=== PATIENT | male | born 1975 | race Caucasian/White ===

== ENCOUNTER 2017-10-06 13:38 | Inpatient (IN) ==
[2017-10-06] MEDS ORDERED: ZOSYN VIAL 3.375 GRAMS 3.375 G in NS 100 ML IV + SPIKE MINIBAG* 100 ML IV SCH (14:04)
[2017-10-06 17:06] VITALS: BMI 18.5
[2017-10-06 17:23] LABS: BASOPHILS # (AUTO) 0.1 X10^3/uL (0.0-0.1); BASOPHILS % (AUTO) 0.9 % (0.2-1.0); EOSINOPHILS % (AUTO) 0.1 % (0.9-2.9); HEMATOCRIT 42.2 % (42.0-54.0); HEMOGLOBIN 14.3 g/dL (13.5-18.0); LYMPHOCYTES # (AUTO) 1.1 X10^3/uL (1.3-2.9); LYMPHOCYTES % (AUTO) 9.5 % (21.0-51.0); MEAN CORPUSCULAR HEMOGLOBIN 30.4 pg (27.0-34.0); MEAN CORPUSCULAR HGB CONC 33.9 g/dL (33.0-35.0); MEAN CORPUSCULAR VOLUME 89.5 fL (80.0-100.0); MEAN PLATELET VOLUME 10.7 fL (7.4-11.0); MONOCYTES # (AUTO) 0.9 x10^3/uL (0.3-0.8); MONOCYTES % (AUTO) 7.8 % (0.0-13.0); NEUTROPHILS # (AUTO) 9.3 x10^3/uL (2.2-4.8); NEUTROPHILS % (AUTO) 81.7 % (42.0-75.0); PLATELET COUNT 207 X10^3/uL (150.0-450.0); RED BLOOD COUNT 4.72 X10^6/uL (4.7-6.0); RED CELL DISTRIBUTION WIDTH 14.6 % (11.6-16.5); WHITE BLOOD COUNT 11.4 X10^3/uL (3.6-10.0)
--- NOTE | 2017-10-06 17:38 | RAD ---
HISTORY: Infected G-tube. Study: Abdomen, two views Comparison: None. Findings: Evaluation of the abdomen demonstrates a nonspecific bowel gas pattern. Following administration of c ontrast within the PEG tube, contrast identified within the gastric fundus. There is a small amount c ontrast identified within the antrum and several loops of small bowel. No contrast extravasation is a ppreciated. No pathological soft tissue mass or calcification can be observed. The bony structures a re grossly intact. A PROCESS COORDINATOR shunt catheter is noted in the right bhanu abdomen. IMPRESSION: 1. No acute abdominal or pelvic abnormality. 2. Contrast identified within the stomach and small bowel following administration via PEG tube. No contrast extravasation is appreciated. Reported By:
[2017-10-06 17:43] LABS: ALANINE AMINOTRANSFERASE 14 Units/L (12-78); ALKALINE PHOSPHATASE 93 Units/L (46-116); ASPARTATE AMINO TRANSFERASE 11 Units/L (15-37); BLOOD UREA NITROGEN 10 mg/dL (7-18); CALCIUM 8.6 mg/dL (8.5-10.1); CARBON DIOXIDE 26.4 mmol/L (21-32); CHLORIDE 104 mmol/L (98-107); COR CA(FOR HYPOALB) 9.4 mg/dL (8.5-10.1); CREATININE 0.74 mg/dL (0.70-1.30); SODIUM 141 mmol/L (136-145); TOTAL PROTEIN 6.8 g/dL (6.4-8.2); eGFR NON BLACK RACES > 60 (>60)
--- NOTE | 2017-10-06 17:55 | DR.H&P ---
H&P - History & Physical for Day of: H&P Date: 10/06/17 - Chief Complaint Chief Complaint: "INFECTED PEG TUBE" - History of Present Illness History of Present Illness: 42WM DIRECT ADMIT FROM DR MENENDEZ OFFICE WITH CO SEVERE REDNESS SURROUNDING PEGTUBE, WITH YELLOW DRAINAGE, STOMA IRRITATED. MOTHER REPORTS POOR APPETITE AND GRIMACING FROM PATIENT "LIKE HES IN PAIN". WOUND CULTURE COLLECTED IN THE OFFICE, RESULTS STILL PENDING. PT MOTHER PERFORMING DRESSING CHANGES QID, WITH APPLICATING BACTROBAN OINTMENT. PT HAS PMH OF CP, MR, GERD, LINN. PT ADMITTED FOR IV ATBX, WOUND AND BLOOD CULTURES, WOUND CARE AND RESUME HOME MEDICATIONS - Past Medical History Past Medical History: Anxiety, Arthritis, GERD Additional Medical History: CP, LINN, G TUBE - Past Surgical History Surgical History: Cholecystectomy - Social History Does patient currently use any type of tobacco product: No Have you used tobacco products in the last 12 months: No Type of Tobacco Use: None Does any household member use tobacco: No Alcohol Use: None Drug Use: None - Medications Home Medications: codeine Adverse Reaction (Verified 10/06/17 17:27) Penicillins Adverse Reaction (Verified 10/06/17 17:27) CONTINUE taking the following medications clonazepam 2 mg PO HS 10/06/17 [History] divalproex 125 mg PO QID 10/06/17 [History] ketoconazole 1 applic TOPICAL 2XW 10/06/17 [History] pantoprazole [Protonix] 40 mg PO DAILY 10/06/17 [History] - Review of Systems Constitutional: Malaise Eyes: No Symptoms Reported ENT: No Symptoms Reported Respiratory: No Symptoms Reported Cardiovascular: No Symptoms Reported. denies: Edema Gastrointestinal: Other (POOR APPETITE) Genitourinary: Incontinence Musculoskeletal: No Symptoms Reported Skin: Rash (LOCALIZED AROUND G TUBE) Neurological: Other (LIMITED COMMUNICATION DUE TO MR, CP) - Physical Exam Vital Signs: Temperature 98.9 F Pulse Rate [Left Brachial] 96 Respiratory Rate 20 Blood Pressure [Left Arm] 101/63 O2 Sat by Pulse Oximetry 97 Oriented: Person Eyes: Normal Ear: Normal Nose: Normal Throat: Dry Respiratory: RLL Diminished, LLL Diminished Cardiovascular: Normal : Normal Auscultation: Bowel Sounds: Normal Palpation: Normal Tenderness: Normal Skin: Decreased Turgur, Rash, Red (LOCALIZED REDNESS SURROUND PEG TUBE WITH THICK YELLOW DRAINAGE FROM STOMA), Tender Musculoskeletal: Deformity, Motor Deficit Psychiatric: Anxiety Affect: Anxious Speech Pattern: Aphasic (LIMITED VERBAL RESPONSES, CHRONIC DUE TO CP) - Assessment/Plan (1) Cellulitis Status: Acute Plan: ADMIT, WOUND AND BLOOD CULTURES. CBC CMP, ABD WITH GASTROGRAFIN XRAY. RESUME PEG TUBE FEEDINGS NORMAL ABD XRAY TO VERIFY PEG TUBE PLACMENT. WOUND CARE, IV ATBX. RESUME HOME MEDS (2) Leaking percutaneous endoscopic gastrostomy (PEG) tube Status: Acute (3) Irritation around percutaneous endoscopic gastrostomy (PEG) tube site Status: Acute (4) Cerebral palsy Status: Acute (5) GERD (gastroesophageal reflux disease) Status: Acute (6) LINN (generalized anxiety disorder) Status: Acute - Allergies Allergies/Adverse Reactions: Allergies Allergy/AdvReac Type Severity Reaction Status Date / Time codeine AdvReac Verified 10/06/17 17:27 Penicillins AdvReac Verified 10/06/17 17:27
[2017-10-06] MEDS ORDERED: DEPAKOTE SPRINKLE PO SCH (18:00)
[2017-10-06] MEDS: NS 1000 ML 1,000 ML IV SCH (19:09)
[2017-10-06] MEDS: CIPRO IV 400 MG PREMIX* 400 MG/200 ML IV.SOLN. IV SCH ×2 (19:09→20:55)
[2017-10-06] MEDS: PROTONIX TAB 40 MG PO SCH (19:11)
[2017-10-06] MEDS: FORTAZ or TAZICEF VIAL INJ 1 G in NS 100 ML IV + SPIKE MINIBAG* 100 ML IV SCH (20:54)
[2017-10-06] MEDS: DEPAKOTE SPRINKLE PO SCH (20:55)
[2017-10-06] MEDS: KLONOPIN TAB 1 MG PO SCH (20:56)
[2017-10-07] MEDS: NS 1000 ML 1,000 ML IV SCH ×2 (05:20→21:47)
[2017-10-07] MEDS: FORTAZ or TAZICEF VIAL INJ 1 G in NS 100 ML IV + SPIKE MINIBAG* 100 ML IV SCH ×3 (05:20→22:30)
[2017-10-07 06:37] LABS: BASOPHILS # (AUTO) 0.1 X10^3/uL (0.0-0.1); BASOPHILS % (AUTO) 0.8 % (0.2-1.0); EOSINOPHILS # (AUTO) 0.1 x10^3/uL (0.0-0.2); EOSINOPHILS % (AUTO) 1.3 % (0.9-2.9); HEMATOCRIT 37.6 % (42.0-54.0); HEMOGLOBIN 13.1 g/dL (13.5-18.0); LYMPHOCYTES % (AUTO) 23.6 % (21.0-51.0); MEAN CORPUSCULAR HEMOGLOBIN 30.8 pg (27.0-34.0); MEAN CORPUSCULAR HGB CONC 34.8 g/dL (33.0-35.0); MEAN CORPUSCULAR VOLUME 88.6 fL (80.0-100.0); MEAN PLATELET VOLUME 10.5 fL (7.4-11.0); MONOCYTES # (AUTO) 0.8 x10^3/uL (0.3-0.8); MONOCYTES % (AUTO) 9.5 % (0.0-13.0); NEUTROPHILS # (AUTO) 5.5 x10^3/uL (2.2-4.8); NEUTROPHILS % (AUTO) 64.8 % (42.0-75.0); PLATELET COUNT 208 X10^3/uL (150.0-450.0); RED BLOOD COUNT 4.24 X10^6/uL (4.7-6.0); RED CELL DISTRIBUTION WIDTH 14.3 % (11.6-16.5); WHITE BLOOD COUNT 8.5 X10^3/uL (3.6-10.0)
[2017-10-07 07:24] LABS: ALANINE AMINOTRANSFERASE 11 Units/L (12-78); ALBUMIN 2.4 g/dL (3.4-5.0); ALKALINE PHOSPHATASE 74 Units/L (46-116); ASPARTATE AMINO TRANSFERASE 9 Units/L (15-37); BLOOD UREA NITROGEN 9 mg/dL (7-18); CALCIUM 7.9 mg/dL (8.5-10.1); CARBON DIOXIDE 27.4 mmol/L (21-32); CHLORIDE 107 mmol/L (98-107); COR CA(FOR HYPOALB) 9.2 mg/dL (8.5-10.1); CREATININE 0.72 mg/dL (0.70-1.30); SODIUM 142 mmol/L (136-145); TOTAL PROTEIN 5.8 g/dL (6.4-8.2); eGFR NON BLACK RACES > 60 (>60)
[2017-10-07] MEDS: CIPRO IV 400 MG PREMIX* 400 MG/200 ML IV.SOLN. IV SCH ×2 (09:25→21:28)
[2017-10-07] MEDS: PROTONIX TAB 40 MG PO SCH (09:26)
[2017-10-07] MEDS: BACTROBAN TOPICAL OINT TOP SCH ×3 (11:36→21:31)
[2017-10-07] MEDS: NYSTATIN OINT TOP SCH ×2 (11:36→21:31)
--- NOTE | 2017-10-07 17:19 | RAD ---
HISTORY: PEG tube change out. Verified PEG tube placement. Study: Abdomen one view Comparison: October 06, 2017. Findings: Following administration of 50 cc of Gastrografin, a single radiograph of the abdomen and p paco was performed. Contrast is identified within the stomach. Additional contrast is identified wit hin the ascending colon and proximal transverse colon. No contrast extravasation is appreciated. IMPRESSION: 1. Contrast identified within the stomach, without evidence of extravasation. Reported By:
[2017-10-07] MEDS: DEPAKOTE SPRINKLE PO SCH (21:30)
[2017-10-07] MEDS: KLONOPIN TAB 1 MG PO SCH (21:30)
[2017-10-08] MEDS: FORTAZ or TAZICEF VIAL INJ 1 G in NS 100 ML IV + SPIKE MINIBAG* 100 ML IV SCH ×2 (05:43→13:59)
[2017-10-08 06:22] LABS: BASOPHILS # (AUTO) 0.1 X10^3/uL (0.0-0.1); BASOPHILS % (AUTO) 0.9 % (0.2-1.0); EOSINOPHILS # (AUTO) 0.3 x10^3/uL (0.0-0.2); EOSINOPHILS % (AUTO) 4.5 % (0.9-2.9); HEMATOCRIT 39.2 % (42.0-54.0); HEMOGLOBIN 13.4 g/dL (13.5-18.0); LYMPHOCYTES # (AUTO) 1.9 X10^3/uL (1.3-2.9); LYMPHOCYTES % (AUTO) 30.3 % (21.0-51.0); MEAN CORPUSCULAR HEMOGLOBIN 30.2 pg (27.0-34.0); MEAN CORPUSCULAR VOLUME 88.9 fL (80.0-100.0); MEAN PLATELET VOLUME 10.9 fL (7.4-11.0); MONOCYTES # (AUTO) 0.6 x10^3/uL (0.3-0.8); MONOCYTES % (AUTO) 9.4 % (0.0-13.0); NEUTROPHILS # (AUTO) 3.5 x10^3/uL (2.2-4.8); NEUTROPHILS % (AUTO) 54.9 % (42.0-75.0); PLATELET COUNT 215 X10^3/uL (150.0-450.0); RED BLOOD COUNT 4.42 X10^6/uL (4.7-6.0); RED CELL DISTRIBUTION WIDTH 14.5 % (11.6-16.5); WHITE BLOOD COUNT 6.3 X10^3/uL (3.6-10.0)
[2017-10-08] MEDS: BACTROBAN TOPICAL OINT TOP SCH ×2 (06:25→13:59)
[2017-10-08 06:27] LABS: ALANINE AMINOTRANSFERASE 12 Units/L (12-78); ALBUMIN 2.4 g/dL (3.4-5.0); ALKALINE PHOSPHATASE 74 Units/L (46-116); ASPARTATE AMINO TRANSFERASE 12 Units/L (15-37); BLOOD UREA NITROGEN 4 mg/dL (7-18); CALCIUM 8.1 mg/dL (8.5-10.1); CARBON DIOXIDE 27.6 mmol/L (21-32); CHLORIDE 108 mmol/L (98-107); COR CA(FOR HYPOALB) 9.4 mg/dL (8.5-10.1); CREATININE 0.76 mg/dL (0.70-1.30); SODIUM 143 mmol/L (136-145); TOTAL PROTEIN 5.9 g/dL (6.4-8.2); eGFR NON BLACK RACES > 60 (>60)
[2017-10-08] MEDS: CIPRO IV 400 MG PREMIX* 400 MG/200 ML IV.SOLN. IV SCH (11:28)
[2017-10-08] MEDS: NYSTATIN OINT TOP SCH (11:28)
[2017-10-08] MEDS: PROTONIX TAB 40 MG PO SCH (11:28)
[2017-10-08] MEDS: NS 1000 ML 1,000 ML IV SCH (12:54)
--- NOTE | 2017-10-08 14:31 | PCM.PROG ---
Progress Note - Progress Note for Day of Date of Exam: 10/07/17 - Subjective Subjective: 42 WM ADMITTED ON 10/06 WITH PEG TUBE MAL FUNCTION AND LOCALIZED SKIN IRRATION AROUND STOMA. PT IS CURRENTLY ON IV ATBX, IMPROVED WBC THIS AM. ABD WITH GASTROGRAF NORMAL STUDY. DR SALGUERO IN TO EVALUATE FEEDING TUBE, CONFIRMED DISPLACEMENT AND REPLACED FEEDING TUBE AT BEDTIME WITH KUB POST PROCEDURE TO CONFIRM PLACMENT. - Past Medical Family Social History Past Med/Fam/Surg Hx: No changes since H&P Allergies: Allergies codeine Allergy (Verified 10/06/17 19:03) Penicillins Allergy (Verified 10/06/17 19:03) - Review of Systems ROS: No change since H&P - Vital Signs and I&O's Vital Signs: Temperature 96.9 F Pulse Rate [Left Brachial] 70 Respiratory Rate 18 Blood Pressure [Left Arm] 99/60 O2 Sat by Pulse Oximetry 95 Intake and Output: Intake & Output 10/06/17 10/07/17 10/08/17 10/09/17 11:59 11:59 11:59 11:59 Intake Total 1055 / 1055 1020 / 1020 Balance 1055 / 1055 1020 / 1020 - Physical Exam Oriented: Person Eyes: Normal Ear: Normal Nose: Normal Throat: Dry Respiratory: Diminished Cardiovascular: Normal : Normal Auscultation: Bowel Sounds: Normal Tenderness: Normal Skin: Decreased Turgur, Rash, Red (LOCALIZED REDNESS SURROUND PEG TUBE WITH THICK YELLOW DRAINAGE FROM STOMA), Tender Musculoskeletal: Deformity, Motor Deficit Psychiatric: Anxiety Affect: Anxious Speech Pattern: Aphasic - Laboratory and Diagnostics Result Diagrams: 10/08/17 05:20 10/08/17 05:20 Labs: 10/06/17 16:13 G Tube Gram Stain - Final 10/06/17 16:13 G Tube Wound Culture - Final Enterobacter Cloacae 10/06/17 21:13 Blood Blood Culture - Preliminary 10/06/17 17:00 Blood Blood Culture - Preliminary Laboratory WBC 6.3 X10^3/uL (3.6-10.0) 10/08/17 05:20 RBC 4.42 X10^6/uL (4.7-6.0) L 10/08/17 05:20 Hgb 13.4 g/dL (13.5-18.0) L 10/08/17 05:20 Hct 39.2 % (42.0-54.0) L 10/08/17 05:20 MCV 88.9 fL (80.0-100.0) 10/08/17 05:20 MCH 30.2 pg (27.0-34.0) 10/08/17 05:20 MCHC 34.0 g/dL (33.0-35.0) 10/08/17 05:20 RDW 14.5 % (11.6-16.5) 10/08/17 05:20 Plt Count 215 X10^3/uL (150.0-450.0) 10/08/17 05:20 MPV 10.9 fL (7.4-11.0) 10/08/17 05:20 Neut % (Auto) 54.9 % (42.0-75.0) 10/08/17 05:20 Lymph % (Auto) 30.3 % (21.0-51.0) 10/08/17 05:20 Mora % (Auto) 9.4 % (0.0-13.0) 10/08/17 05:20 Eos % (Auto) 4.5 % (0.9-2.9) H 10/08/17 05:20 Baso % (Auto) 0.9 % (0.2-1.0) 10/08/17 05:20 Neut # (Auto) 3.5 x10^3/uL (2.2-4.8) 10/08/17 05:20 Lymph # (Auto) 1.9 X10^3/uL (1.3-2.9) 10/08/17 05:20 Mora # (Auto) 0.6 x10^3/uL (0.3-0.8) 10/08/17 05:20 Eos # (Auto) 0.3 x10^3/uL (0.0-0.2) H 10/08/17 05:20 Baso # (Auto) 0.1 X10^3/uL (0.0-0.1) 10/08/17 05:20 Absolute Nucleated RBC 0.0 /100WBC 10/08/17 05:20 Sodium 143 mmol/L (136-145) 10/08/17 05:20 Corrected Sodium TNP 10/08/17 05:20 Potassium 3.8 mmol/L (3.5-5.1) 10/08/17 05:20 Chloride 108 mmol/L (98-107) H 10/08/17 05:20 Carbon Dioxide 27.6 mmol/L (21-32) 10/08/17 05:20 BUN 4 mg/dL (7-18) L 10/08/17 05:20 Creatinine 0.76 mg/dL (0.70-1.30) 10/08/17 05:20 Est GFR (MDRD) Af Amer > 60 (>60) 10/08/17 05:20 Est GFR (MDRD) Non-Af > 60 (>60) 10/08/17 05:20 Glucose 99 mg/dL (65-99) 10/08/17 05:20 Calcium 8.1 mg/dL (8.5-10.1) L 10/08/17 05:20 Corrected Calcium 9.4 mg/dL (8.5-10.1) 10/08/17 05:20 Total Bilirubin 0.30 mg/dL (0.2-1.0) 10/08/17 05:20 AST 12 Units/L (15-37) L 10/08/17 05:20 ALT 12 Units/L (12-78) 10/08/17 05:20 Alkaline Phosphatase 74 Units/L (46-116) 10/08/17 05:20 Total Protein 5.9 g/dL (6.4-8.2) L 10/08/17 05:20 Albumin 2.4 g/dL (3.4-5.0) L 10/08/17 05:20 Globulin 3.5 g/dL (2.5-4.5) 10/08/17 05:20 Albumin/Globulin Ratio 0.7 Ratio (1.1-2.1) L 10/08/17 05:20 - Plan (1) Cellulitis Status: Acute Plan: WOUND AND BLOOD CULTURES COLLECTED ON ADMISSION. CBC CMP, ABD WITH GASTROGRAFIN XRAY. FEEDING TUBE REPLACEMENT PER DR SALGUERO. RESUME PEG TUBE FEEDINGS NORMAL ABD XRAY TO VERIFY PEG TUBE PLACMENT. WOUND CARE, IV ATBX. RESUME HOME MEDS (2) Leaking percutaneous endoscopic gastrostomy (PEG) tube Status: Acute (3) Irritation around percutaneous endoscopic gastrostomy (PEG) tube site Status: Acute (4) Cerebral palsy Status: Acute (5) GERD (gastroesophageal reflux disease) Status: Acute (6) LINN (generalized anxiety disorder) Status: Acute
[2017-10-08 17:32] VITALS: BP 92/64
== END 2017-10-08 17:41 | disposition home or self-care (01) | DRG 394 ==
LOC: MED/SURG 14:31
PROVIDERS: ADMIT Internal Medicine; ATTEND Internal Medicine
DX: K94.23 Gastrostomy malfunction; G80.8 Other cerebral palsy; L03.311 Cellulitis of abdominal wall; F41.8 Other specified anxiety disorders; K94.22 Gastrostomy infection; K21.9 Gastro-esophageal reflux disease without esophagitis; B96.89 Other specified bacterial agents as the cause of diseases classified elsewhere
CPT/HCPCS: 36415; 74000; 74018; 80053; 85025; 87040; 87070; 87075; 87076; 87077; 87186; 87205; 99221; 99231; 99238; A4222; J0713; J0744; J3490; J7030; J7050